=== PATIENT | male | born 1965 | race Caucasian/White ===

== ENCOUNTER 2016-11-17 06:56 | Inpatient (IN) | payer SELFPAY ==
--- NOTE | 2016-11-17 07:40 | EDPHY ---
H & P Time Seen by Provider: 11/17/16 07:32 HPI/ROS: CHIEF COMPLAINT: "My transverse colon to my descending colon has a blockage" HISTORY OF PRESENT ILLNESS: This patient is a 51 year old man, with a history of diverticulitis, presenting with constipation, intermittent over the last two weeks. He last had a bowel movement on Friday (three days ago), encouraged after a suppository. He has had moderate difficulty to have a bowel movement since. It is associated with abdominal distention and left upper abdomen discomfort. The LUQ pain is severe. He has taken X-lax and a small volume enema , with very little alleviation. He passed a small volume of very firm stool. The patient feels like he has not had a complete bowel movement, senses that he has a "blockage at the junction of his transverse colon and descending colon". He denies vomiting or fever. Denies history of bowel obstruction or abdominal surgery. He requests a large enema. REVIEW OF SYSTEMS: Constitutional: No fever, no chills Eyes: No visual changes ENT: No sore throat Respiratory: No cough, no shortness of breath Cardiac: No chest pain Gastrointestinal: No nausea, no vomiting, constipation, left upper quadrant abdominal pain and distention Genitourinary: No hematuria, no dysuria Musculoskeletal: No leg pain or swelling Skin: No rash Neurological: No headache, no numbness, no weakness Psychiatric: No depression Past Medical/Surgical History: Diverticulitis, intermittent problems with constipation. Denies history of bowel obstruction or abdominal surgery. Social History: Non-smoker Smoking Status: Never smoked Physical Exam: General Appearance: Alert, pleasant Eyes: Pupils equal and round, no conjunctival pallor or injection ENT, Mouth: Mucous membranes moist Neck: Normal inspection Respiratory: Lungs are clear to auscultation Cardiovascular: Regular rate and rhythm Gastrointestinal: Abdomen has a firm round mass in the left upper quadrant with moderate tenderness. Neurological: A&O, nonfocal, normal gait Skin: Warm and dry, no rash Extremities: Nontender, no pedal edema Psychiatric: Mood and affect normal Constitutional: Initial Vital Signs Temperature (C) 36.4 C 11/17/16 07:09 Heart Rate 104 H 11/17/16 07:09 Respiratory Rate 22 H 11/17/16 07:09 Blood Pressure 157/96 H 11/17/16 07:09 O2 Sat (%) 95 11/17/16 07:09 O2 Delivery Mode Room Air Allergies/Adverse Reactions: No Known Allergies Allergy (Unverified 11/09/12 08:05) Home Medications: Medication Instructions Recorded NK [No Known Home Meds] 11/17/16 Medical Decision Making - Diagnostics Imaging: Study: CT of the Abdomen Indication: Abdominal pain, hx of diverticulitis Results: The results of the study are: Impression: 1. Descending colon diverticulitis with multiple small abscesses and inflammation along the left lateral paracolic gutter, and also associated with some inflammation of the adjacent left oblique musculature and subcutaneous adipose. A tiny dot of free air is seen under the left hemidiaphragm. There is also evidence of mild rectosigmoid colitis. 2. Interval increase in the size of the left adrenal gland enhancing nodule compared to 2013. Please see the below algorithm for follow-up*. CT or MR reevaluation in 3 months may also be of benefit. 3. Hepatomegaly with diffuse steatosis. The study was read by the radiologist, Dr. Snyder. I viewed the images myself on the PACS system. ED Course/Re-evaluation: The patient insists that he has a fecal impaction. He requests enema, declines further workup prior to the enema. Insists that "this is not my diverticulitis" . Large soap-suds enema administered, requested by the patient. WBC is elevated at 18,000. 0930: Re-evaluation: He is holding in the soap suds enema. No bowel movement yet. I discussed abdomen CT if he does not have a bowel movement soon. Abdominal CT ordered and demonstrated diverticulitis complicated by perforation and abscess. Hospitalist and surgeon paged. Levaquin and Flagyl IV given. Morphine and Zofran IV given for pain control. 1120: I consulted with Dr. Akila Milner, surgery. She will consult on the patient. 1122: I consulted with the hospitalist service. Dr. Brown accepts admission. Differential Diagnosis: Differential diagnosis includes though it is not limited to appendicitis, cholecystitis, diverticulitis, pyelonephritis, bowel perforation, small bowel obstruction. - Data Points Laboratory Results: Laboratory Results 11/17/16 08:54 11/17/16 08:54 Medications Given: Discontinued Medications Sodium Chloride (Ns) 1,000 mls @ 0 mls/hr IV ONCE ONE PRN Reason: Wide Open Stop: 11/17/16 09:28 Last Admin: 11/17/16 09:30 Dose: 1,000 mls Levofloxacin/Dextrose (Levaquin 750 Mg (Premix)) 150 mls @ 100 mls/hr IV EDNOW ONE PRN Reason: Protocol Stop: 11/17/16 12:45 Last Admin: 11/17/16 12:30 Dose: 150 mls Metronidazole/Sodium Chloride (Flagyl 500 Mg (Premix)) 100 mls @ 100 mls/hr IV EDNOW ONE PRN Reason: Protocol Stop: 11/17/16 12:16 Last Admin: 11/17/16 11:25 Dose: 100 mls Morphine Sulfate (Morphine) 6 mg IVP Q1H PRN PRN Reason: Pain, Severe Unable to Take PO Stop: 11/17/16 13:27 Last Admin: 11/17/16 11:55 Dose: 6 mg Ondansetron HCl (Zofran) 4 mg IVP EDNOW ONE Stop: 11/17/16 11:27 Last Admin: 11/17/16 11:55 Dose: 4 mg Departure - Departure Disposition: [facility] Inpatient Acute Clinical Impression: Diverticulitis Qualifiers: Diverticulitis site: large intestine Diverticulitis bleeding: without bleeding Diverticulitis complication: with perforation and abscess Qualifier Code: ( K57.20) Diverticulitis of large intestine with perforation and abscess without bleeding Condition: Fair Report Scribed for: Stephanie Childs Report Scribed by: Laurence Oseguera Date of Report: 11/17/16 Time of Report: 07:40 Physician Review and Approval Statement: 11/17/16 07:41 Portions of this note were transcribed by a biomedical engineering supervisor. I personally performed a history, physical exam, medical decision making, and confirmed accuracy of information the transcribed note.
[2016-11-17 09:06] LABS: % IMMATURE GRANULYOCYTES 0.7 % (0.0-1.1); ABSOLUTE IMMATURE GRANULOCYTES 0.13 10^3/uL (0.00-0.10); ADD DIFF? NO; ADD MORPH? NO; ADD SCAN? NO; ATYPICAL LYMPHOCYTE FLAG 0 (0-99); FRAGMENT RBC FLAG 0 (0-99); HEMATOCRIT 46.1 % (40.0-51.0); HEMOGLOBIN 15.8 g/dL (13.7-17.5); LEFT SHIFT FLG 10 (0-99); LIPEMIA HEMOLYSIS FLAG 90 (0-99); MEAN CELL HEMOGLOBIN 28.5 pg (27.9-34.1); MEAN CELL HEMOGLOBIN CONCENTR. 34.3 g/dL (32.4-36.7); MEAN CELL VOLUME 83.1 fL (81.5-99.8); MEAN PLATELET VOLUME 9.6 fL (8.7-11.7); PLATELET CLUMPS FLAG 10 (0-99); PLATELET COUNT 373 10^3/uL (150-400); RED BLOOD CELL COUNT 5.55 10^6/uL (4.40-6.38); RED CELL DISTRIBUTION WIDTH 13.9 % (11.5-15.2)
[2016-11-17 09:19] LABS: ANION GAP 13 mEq/L (8-16); CALCIUM 9.9 mg/dL (8.5-10.4); CARBON DIOXIDE 23 mEq/l (22-31); CHLORIDE 108 mEq/L (97-110); CREATININE 1.2 mg/dL (0.7-1.3); GLOMERULAR FILTRATION RATE > 60; GLUCOSE 127 mg/dL (70-100); POTASSIUM 4.5 mEq/L (3.5-5.2); SODIUM 144 mEq/L (134-144)
[2016-11-17] MEDS ORDERED: NS 1,000 ML IV ONE (09:27)
[2016-11-17] MEDS ORDERED: IOPAMIDOL (ISOVUE-300) 100 ML BTL IV ONE (09:45)
--- NOTE | 2016-11-17 10:58 | CT ---
"Contrast Enhanced CT Scan of the Abdomen and Pelvis Clinical History: 51-year-old male presenting to the ED complaining of constipation for 2 weeks and severe left upper quadrant pain the last 2 days, with a prior history of diverticulitis. The patient has no prior abdominal surgery history. Technique: Neither oral nor retrograde rectal contrast was administered. Following the uncomplicated intravenous administration of 99 mL of Isovue-300, a multidetector helical CT scan was obtained from the lung bases inferiorly through the proximal femora, with images reformatted at 5.00 and 1.25 mm in crements, and reviewed at a variety of window and level settings. Parasagittal and paracoronal recons tructed images are reviewed on the workstation. The DFOV is 46.4 cm. Dose reduction techniques were u tilized. Comparison Study: Contrast-enhanced CT scan of the abdomen and pelvis, dated November 01, 2012. Findings: Contrast-Enhanced CT Scan of the Abdomen: There is some minimal inferolateral lingular subsegmental a telectasis versus scar. There is no pleural or pericardial effusion. The liver is notable for some gl obal diminished attenuation, consistent with steatosis, and is also enlarged, measuring 19.8 cm along the right hepatic lobe cephalocaudal diameter. There is a 3 mm stable left hepatic lobe cyst on seri es 3 image 12. The spleen, gallbladder, bile ducts, pancreas, right adrenal gland, and the kidneys ar e normal in appearance. There has been a mild marginal interval increase in the size of a smoothly-co ntoured rounded nodule associated with the left adrenal gland, currently measuring 1.8 x 1.9 x 1.8 cm , and previously measuring 1.1 x 1.2 x 1.2 cm in 2013*. The aorta tapers normally, and the IVC is nor mal in caliber. There is no ascites or free air. The CT appearance of small bowel is unremarkable. Th ere is an abnormal appearance to the descending colon within the setting of numerous diverticula, wit h intraluminal fluid, wall thickening, and inflammation of the adjacent mesenteric fat. There has bee n development of some abscesses along the left lateral paracolic gutter (please reference series 3, i mages 32 through 52). The largest abscess cavity measures 3.8 x 6.6 x 5.1 cm. There is also some mild inflammatory thickening along the peripheral lateral left oblique muscle and subcutaneous adipose. M oderate centripetal obesity is present. A tiny dot of free air is seen near the left hemidiaphragm on series 4, image 28. Contrast-Enhanced CT Scan of the Pelvis: In addition to the aforementioned descending colon diverticu litis, there are a few scattered sigmoid colon diverticula with some wall thickening and enhancement extending to the rectosigmoid junction. There is no free air or free fluid in the pelvis. The urinary bladder is moderately distended. The prostate gland and the seminal vesicles are normal. The bladder has a normal contour. There is normal enhancement of the vasculature. The subcutaneous tissues are n ormal in appearance. Skeletal System: Normal. Impression: 1. Descending colon diverticulitis with multiple small abscesses and inflammation along the left late ral paracolic gutter, and also associated with some inflammation of the adjacent left oblique muscula ture and subcutaneous adipose. A tiny dot of free air is seen under the left hemidiaphragm. There is also evidence of mild rectosigmoid colitis. 2. Interval increase in the size of the left adrenal gland enhancing nodule compared to 2013. Please see the below algorithm for follow-up*. CT or MR reevaluation in 3 months may also be of benefit. 3. Hepatomegaly with diffuse steatosis. *Consider obtaining a 24 hour urinary free cortisol or a dexamethasone suppression test, 24 hour urin dina metanephrines and catecholamines, and if hypertensive, plasma aldosterone and plasma renin levels . Results were discussed with Dr. Angie Childs. A Follow-Up Required test result has been communicated via the [facility] | Critical Result syst em on 11/17/2016 10:54, Message ID [id number]."
[2016-11-17] MEDS ORDERED: ONDANSETRON 4 MG/2 ML VIAL IVP ONE (11:26)
[2016-11-17 12:00] LABS: APTT 27.4 SEC (23.0-38.0); INR 1.05 (0.83-1.16); PROTIME(PATIENT) 13.6 SEC (12.0-15.0)
--- NOTE | 2016-11-17 12:17 | GCON ---
[f rep st] CONSULTATION GENERAL SURGERY CONSULTATION DATE OF CONSULTATION: 11/17/2016 REFERRING PHYSICIAN: Stephanie Childs MD HISTORY OF PRESENT ILLNESS: The patient is a 51-year-old man with a history of diverticulitis requir ing hospitalization roughly 4 years ago, who presented to the Emergency Department complaining of lef t lower quadrant pain associated with abdominal distention, nausea, and low-grade fevers. He was fou nd on presentation to the Emergency Department to have a white blood cell count of 19. CT scan demon strated descending diverticulitis with left lateral pericolic gutter abscesses, the largest measuring almost 7 cm in greatest diameter. ASSESSMENT AND PLAN: Descending and sigmoid diverticulitis complicated by pericolic gutter abscesses . He will be admitted to the Hospitalist Service for its broad spectrum antibiotic therapy. I would recommend percutaneous drainage of the largest abscess cavity within the pericolic gutter near the a bdominal wall. I discussed both nonoperative and operative management of diverticulitis with the pat ieroseann and recommended nonoperative therapy for now with percutaneous drainage of his largest abscess a nd antibiotic therapy. If he fails to respond to nonoperative management, he may require emergent or urgent colonic resection which often in the acute setting requires colostomy placement. I also josiah mmended that even if he does respond to nonoperative management at this time, that he eventually foll ow up with Gastroenterology for colonoscopy, and subsequently with Surgery for possible elective and minimally invasive resection of the diverticular segment, as he has had 2 attacks and this one is com plicated by microperforation and abscess. /[id number]/MODL
[2016-11-17] MEDS ORDERED: ZOLPIDEM TARTRATE 5 MG TAB PO PRN (13:44)
[2016-11-17] MEDS: NS 1,000 ML IV SCH (14:19)
--- NOTE | 2016-11-17 14:38 | GHP ---
[f rep st] HISTORY AND PHYSICAL DATE OF ADMISSION: 11/17/2016 CHIEF COMPLAINT: Abdominal pain, fevers. HISTORY OF PRESENT ILLNESS: The patient is a 51-year-old man with a history significant for previous hospitalization for diverticulitis. During that time, he had a small area of perforation. He defer vesced, and the symptoms resolved on Levaquin and Flagyl. Since then, he has had occasional episodes of left lower quadrant discomfort. Typically when that happens, he decreases his oral intake, takes probiotics, and the symptoms resolve. He had similar symptoms 2 weeks ago after eating some pizza. He got a little better after 2 days, but never quite back to normal. Then on Friday, 4 days prio r to this admission, he started having worsening abdominal pain and bloating. , his distenti on got quite a bit worse with swelling in the left lower quadrant, and he developed low-grade fevers. He was hoping the symptoms would resolve, but they persisted. He initially thought this was second dina to constipation, and his last bowel movement was Friday. So on Friday, he started taking Ex -Lax and suppositories. Had a large bowel movement. However, he continued to have a lot of pain and bloating, so he came into the emergency department today for further evaluation and treatment. Vinicius es any headache. No vision, hearing, or speech problems. No chest pain, coughing, or shortness of b reath. No nausea or vomiting. No urinary symptoms. No lower extremity swelling. No significant omi int pains or rashes. REVIEW OF SYSTEMS: A 10-point review of systems was done and is negative except as stated in the HPI . PAST MEDICAL HISTORY: Previous diverticulitis 4 years ago. Scattered papules on his skin which have been present for years, slightly improved from previous. FAMILY HISTORY: Father from some sort of cancer in his abdomen. Mother also passed of what he thinks was cancer. She had a bloated belly at the time of her . 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 He is here with his fiance. He denies a ny tobacco or alcohol use. CURRENT MEDICATIONS: None. ALLERGIES: No known drug allergies. PHYSICAL EXAMINATION: VITAL SIGNS: Afebrile. Heart rate 101, blood pressure 145/79, respirations 1 8. He is 97% on room air. GENERAL: He is a 51-year-old man who is quite uncomfortable with abdomin al pain. He is oriented and alert. HEENT: Pupils are equal. Extraocular movements intact. Mucous membranes are slightly dry. Oropharynx is clear. NECK: Supple, without adenopathy. HEART: Tachy cardic and regular, with a systolic murmur. LUNGS: Clear bilaterally, without wheeze or rhonchi. A BDOMEN: Distended. He does have some tenderness with a slight mass in his left lower quadrant. EXT REMITIES: No clubbing, cyanosis, or edema. : Within normal limits. MUSCULOSKELETAL: No joint d eformities or effusions noted. SKIN: He has some scattered dry papules on his upper arm and hand th at look like neurofibromas. NEUROLOGIC: He is intact. LABORATORY DATA: CBC shows a white count of 18.74, with a left shift. Hemoglobin 15.8, with a plate let count of 373. Electrolytes are normal. BUN 26, with a creatinine of 1.2. Glucose is 127. DIAGNOSTICS: Abdominal CT scan shows descending colon diverticulitis with multiple small abscesses a nd inflammation along the left lateral pericolic gutter. Largest abscess 3 x 4 x 5 cm. Interval inc rease in the size of the left adrenal gland. Enhancing nodule. Algorithm for followup of CT or MR r e-evaluation in 3 months. ASSESSMENT AND PLAN: A previously healthy 51-year-old with a history of diverticulitis who presents with abdominal pain. Found to have complicated diverticulitis with multiple abscesses, the largest o f which is amenable to IR drain placement. 1. Complicated diverticulitis with abscess formation and microperforations. Appreciate general surg nadia consult. The plan will be to admit him to the hospital for IV antibiotics. We will ask Interven tional Radiology to review the CAT scan for possible drain placement in the largest abscess. Hopeful ly, he will improve clinically enough with these nonsurgical measures to avoid surgery. If he does n ot improve, then he will need surgery. Regardless, post hospitalization, he is at high risk for recu rrent diverticulitis and abscess formation since this is his second episode of complicated diverticul itis and would refer him to a surgeon. 2. Scattered skin nodules, likely benign. Follow up with Dermatology as an outpatient. 3. Adrenal nodule noted on routine CT scan. Recommend CT or MR re-evaluation in 3 months. 4. Hepatic steatosis. Recommend the patient establish care with a primary care physician versus [facility] to have this followed up as an outpatient. 5. DVT prophylaxis. We will start low molecular weight heparin in the morning. He may be undergoin g a procedure this afternoon. 6. Given the complicated diverticulitis, the patient will need greater than a 2-midnight stay for co mplete treatment. CODE STATUS: Patient full code. /[id number]/MODL
[2016-11-17] MEDS: ERTAPENEM 1 GM in NS 100 ML IV SCH (16:25)
--- NOTE | 2016-11-17 16:51 | POSTOPPROG ---
Post Op Note Date of Operation: 11/17/16 Surgeon: Claudio Maldonado Anesthesia: Local (Specify) Pre-op Diagnosis: Diverticulitis with abscess Post-op Diagnosis: same Indication: abscess Procedure: CT-guided abscess drainage Findings: 25 ml pus drained Inf/Abcess present in the surg proc area at time of surgery?: Yes Depth: Organ Space EBL: Minimal Complications: 0 Drains: Other (8F multisidehole pigtail drain (Skater))
[2016-11-17 18:33] LABS: COLOR YELLOW; LEUKOCYTE ESTERASE,URINE NEGATIVE (NEGATIVE); NITRITE,URINE NEGATIVE (NEGATIVE)
[2016-11-17 18:40] LABS: MUCUS 1+ /lpf (NONE-1+)
--- NOTE | 2016-11-17 18:50 | CT ---
CT-Guided Percutaneous Abscess Drain History: Diverticulitis with abscess. Consent: Risks and benefits of the procedure were discussed in detail. Informed consent was obtained . Patient accepted risks of internal bleeding, sepsis, and damage to nontarget organ. Medication: Local anesthetic, only. Technique: Radiopaque adhesive localizing grid was placed over the left side of the abdomen and CT im ages were obtained using dose reduction technology. Skin site was selected and labeled. The grid was removed and the skin was prepped and draped in a sterile fashion. 1% Xylocaine was used for local ane sthetic. After a skin jerome with a scalpel, an 8-Tanzanian multiside-hole SKATER pigtail drainage tube wa s passed into the abscess in trocar fashion. CT images were obtained. The retention string was locked . Purple spacer was placed. 25 mL of mathews-green pus were evacuated with half of that sent to the labor atory for microbiology. The abscess was irrigated with 10 mL of sterile saline. The catheter was secu red to the skin with a sterile adhesive dressing. A three-way stopcock, connecting tube, and small nichole ction bulb reservoir were attached. The patient tolerated the procedure well and was returned to his room in stable condition. Findings: The drainage tube is well centered within the abdominal abscess along the left lateral abdo reynaldo cavity. Impression: CT-guided drainage of left abdominal abscess. - - - - - - - - - - - - - - - - - - - - - - - - - - - - - (PQRS measures: Current medications were listed in the medical record, including all known prescripti ons, [id number] medications, herbal medications, and nutritional supplements. Tobacco use: None . Prophylactic antibiotic:Unnecessary. VTE prophylaxis:Unnecessary.) IR Call
[2016-11-17] MEDS: ONDANSETRON 4 MG/2 ML VIAL IVP PRN (20:20)
[2016-11-18] MEDS: NS 1,000 ML IV SCH ×2 (01:04→07:22)
[2016-11-18] MEDS: ONDANSETRON 4 MG/2 ML VIAL IVP PRN ×3 (01:06→21:21)
[2016-11-18] MEDS: ONDANSETRON DISINTEGRATING 4 MG TAB PO PRN (02:53)
[2016-11-18 05:52] LABS: % IMMATURE GRANULYOCYTES 0.6 % (0.0-1.1); ABSOLUTE IMMATURE GRANULOCYTES 0.08 10^3/uL (0.00-0.10); ADD DIFF? NO; ADD MORPH? NO; ADD SCAN? NO; ATYPICAL LYMPHOCYTE FLAG 0 (0-99); FRAGMENT RBC FLAG 0 (0-99); HEMOGLOBIN 12.9 g/dL (13.7-17.5); LEFT SHIFT FLG 0 (0-99); LIPEMIA HEMOLYSIS FLAG 90 (0-99); MEAN CELL HEMOGLOBIN 28.5 pg (27.9-34.1); MEAN CELL HEMOGLOBIN CONCENTR. 33.9 g/dL (32.4-36.7); MEAN CELL VOLUME 84.1 fL (81.5-99.8); MEAN PLATELET VOLUME 9.4 fL (8.7-11.7); PLATELET CLUMPS FLAG 0 (0-99); PLATELET COUNT 314 10^3/uL (150-400); RED BLOOD CELL COUNT 4.52 10^6/uL (4.40-6.38)
[2016-11-18 06:27] LABS: ALANINE AMINOTRANSFERASE 31 IU/L (21-72); ALBUMIN 2.4 g/dL (3.5-5.0); ANION GAP 9 mEq/L (8-16); ASPARTATE AMINOTRANSFERASE 17 IU/L (17-59); BILIRUBIN,TOTAL 0.5 mg/dL (0.1-1.4); CALCIUM 8.7 mg/dL (8.5-10.4); CARBON DIOXIDE 23 mEq/l (22-31); CHLORIDE 111 mEq/L (97-110); CREATININE 1.1 mg/dL (0.7-1.3); GLOMERULAR FILTRATION RATE > 60; GLUCOSE 110 mg/dL (70-100); POTASSIUM 4.3 mEq/L (3.5-5.2); SODIUM 143 mEq/L (134-144); TOTAL PROTEIN 5.4 g/dL (6.3-8.2)
[2016-11-18] MEDS: ERTAPENEM 1 GM in NS 100 ML IV SCH (08:01)
[2016-11-18] MEDS: ENOXAPARIN 40 MG/0.4 ML SYR SC SCH (08:01)
--- NOTE | 2016-11-18 08:55 | HOSPPROG ---
Hospitalist Progress Note Assessment/Plan: 51-year-old relatively healthy man with a previous history of diverticulitis presents with abdominal pain. Found to have acute diverticulitis complicated by abscess and perforation. He underwent percutaneous drainage of the largest abscess yesterday with good result by Dr. Maldonado. He continues to have a drain in place, cultures are pending. # diverticulitis complicated by abscess formation and micro perforation. He has multiple abscesses noted on CT scan the largest of which was drained. * Continue antibiotics and await culture results * Discussed with ID who will see him in consultation regarding length of therapy and follow-up. * Gently advance diet when patient is ready. Continue sips and chips for now. # DVT prophylaxis, Lovenox Subjective: Feeling much better today pain is about a 5 or 6/10. No chest pain coughing shortness of breath no diarrhea or rash Objective: Vital Signs Temp Pulse Resp BP Pulse Ox 36.6 C 74 16 122/84 H 92 11/18/16 07:38 11/18/16 07:38 11/18/16 07:38 11/18/16 07:38 11/18/16 07:38 Microbiology 11/17/16 15:50 Gram Stain - Final Abdomen - Aspirate Laboratory Results 11/18/16 05:20 11/18/16 05:20 11/17/16 11/18/16 11/19/16 05:59 05:59 05:59 Intake Total 1125 1942 Output Total 350 Balance 775 1942 PT 13.6 SEC (12.0-15.0) 11/17/16 08:45 INR 1.05 (0.83-1.16) 11/17/16 08:45 - Physical Exam Constitutional: uncomfortable Eyes: PERRL, anicteric sclera, EOMI Ears, Nose, Mouth, Throat: moist mucous membranes, No oral thrush Cardiovascular: regular rate and rhythym, no murmur, rub, or gallop Respiratory: no respiratory distress, no rales or rhonchi, clear to auscultation , reduced air movement (Basis) Gastrointestinal: guarding (Left lower quadrant), distension (Mild), No normoactive bowel sounds (Diminished) Genitourinary: no bladder fullness Skin: normal color Musculoskeletal: full muscle strength, No muscular tenderness, No abnormal gait Neurologic: AAOx3 Psychiatric: interacting appropriately, not anxious, not encephalopathic ICD10 Worksheet Patient Problems: Problems Problem Status Diagnosed Diverticulitis Acute
--- NOTE | 2016-11-18 19:47 | SOAPPROG ---
SOAP Progress Note Assessment/Plan: Assessment: s/p percutaneous drainage of left paracolic gutter abscess acute sigmoid diverticulitis clinically improving Plan: continue pigtail drain, IV antibiotics 11/18/16 19:45 Subjective: pain improved Objective: Vital Signs Temp Pulse Resp BP Pulse Ox 36.8 C 70 18 122/74 H 92 11/18/16 16:00 11/18/16 16:00 11/18/16 16:00 11/18/16 16:00 11/18/16 16:00 Microbiology 11/17/16 15:50 Gram Stain - Final Abdomen - Aspirate Laboratory Results 11/18/16 05:20 11/18/16 05:20 11/17/16 11/18/16 11/19/16 05:59 05:59 05:59 Intake Total 1125 3814 Output Total 350 45 Balance 775 3769 PT 13.6 SEC (12.0-15.0) 11/17/16 08:45 INR 1.05 (0.83-1.16) 11/17/16 08:45 Physical Exam - Physical Exam General Appearance: alert Abdomen: non-tender, soft, other (45 ml purulent fluid from drain) ICD10 Worksheet Patient Problems: Problems Problem Status Diagnosed Diverticulitis Acute
[2016-11-18 20:52] LABS: ALKALINE PHOSPHATASE 87 IU/L (38-126)
--- NOTE | 2016-11-19 02:50 | GCON ---
[f rep st] CONSULTATION INFECTIOUS DISEASES CONSULTATION. DATE OF CONSULTATION: 11/18/2016 REFERRING PHYSICIAN: Denise Edwards MD REASON FOR CONSULTATION: Diverticular abscess. HISTORY OF PRESENT ILLNESS: The patient is a 51-year-old male with a past medical history of prior d iverticulitis, who I am asked to see in consultation for recurrent diverticulitis with associated div erticular abscess. The patient describes having abdominal pain develop over the last 10-14 days. He notes this began after eating a pizza and was most prominent in the epigastric region but then later became more prominent in his left lower quadrant. He also had concomitant abdominal distention with bloating. He did not note any fevers or chills but did have night sweats. He used some over-the-co unter therapies for constipation hoping this would relieve his symptoms but after having a bowel move ment, he still had worsening pain and bloating. He ultimately came into the emergency department at which point in time, a CT scan of the abdomen and pelvis was performed which revealed multiple divert icular abscesses; the largest abscess measured 3.8 x 6.6 x 5.1 cm along the left lateral pericolic gu tter; he underwent percutaneous drainage of this abscess collection yesterday and his Gram stain is p olymicrobial including gram-positive cocci, gram-negative rods, and gram-positive beaded rods. He vides s been treated empirically with ertapenem and feels significantly improved post drainage. He continu es to have some purulent appearing material in his SVETA drain but notes this is clearing over time. He has been seen in consultation by surgery and understands he likely will need surgical management onc e his acute episode of diverticulitis has been adequately treated. Given the above findings, I am no w asked to assist in his ongoing management. PAST MEDICAL HISTORY: Recurrent diverticulitis as above, a prior traumatic injury as a child. PAST SURGICAL HISTORY: Unremarkable. CURRENT MEDICATIONS: Ertapenem 1 g IV daily, Lovenox 40 mg subcutaneous daily, morphine as needed fo r pain, Oxy IR as needed for pain. ALLERGIES: No known drug allergies. SOCIAL HISTORY: Patient does not smoke. He rarely drinks alcohol. No drug use history. FAMILY HISTORY: Not well known; patient notes that his mother had a distended abdomen when she and concern for cancer was present. REVIEW OF SYSTEMS: Outside that noted in HPI, remainder of 10 system review is unremarkable other th an patient notes that his urine appeared soapy after having a soapsuds enema. He does not note any a ir passage when urinating. Patient did have recent dental work and had been taking some amoxicillin after having an implant placed. PHYSICAL EXAMINATION: VITAL SIGNS: Temperature 37, heart rate 73, respiratory rate 16, blood pressu re 125/79, oxygen saturation 93% on room air. GENERAL: Patient is well nourished, well developed, n o acute distress. He appears nontoxic. HEENT: There is no scleral icterus, conjunctival injection, or conjunctival petechiae. Oropharynx is clear without lesions. Mucous membranes are moist. NECK: Supple without palpable lymphadenopathy. There is no palpable thyromegaly. CHEST: Clear to auscu ltation bilaterally without adventitious sounds. Respiratory effort normal. CARDIOVASCULAR: Regula r rate and rhythm with a 2/6 systolic murmur heard at the left upper and right upper sternal borders. There are no gallops or rubs noted. ABDOMEN: Soft, mildly tender in the epigastrium and left lowe r quadrant; SVETA drain is in place with seropurulent output. Bowel sounds are present. There are no p eritoneal signs. MUSCULOSKELETAL: There is no cyanosis, clubbing, or edema. SKIN: No stigmata of endocarditis. Skin is warm, dry to touch. LYMPHATICS: No cervical or supraclavicular nodes palpabl e. NEUROLOGIC: The patient is alert, interacts appropriately with the examiner. Cranial nerves 2-1 2 grossly intact. Sensation is grossly intact. LABORATORY DATA: White blood cell count 14.2, hematocrit 38.0, platelets 314, neutrophils 79%. Seru m creatinine is 1.1, AST 17, ALT 31, alkaline phosphatase 199, bilirubin 0.5, albumin 2.4. Urinalysi s showed 1-3 red blood cells and 1-3 white blood cells. Gram stain of the diverticular abscess as ou tlined in history of present illness with cultures currently showing 2 gram-negative rods. CT scan o f the abdomen pelvis as outlined above which was reviewed and interpreted by me today. IMPRESSION: Recurrent diverticulitis complicated by diverticular abscess and contained perforation: Gram stain is polymicrobial with gram-positive cocci, raising issue of Enterococcus or microaerophil ic streptococci; beaded gram-positive rods also raises consideration of Actinomyces. The patient is clinically improved post percutaneous drainage. Patient does describe passing soapy material in his urine after having a soapsuds enema; will consider having dye injected into his drain prior to remova l to ensure there is no evidence of colovesicular fistula. RECOMMENDATIONS: 1. Zosyn 4.5 g IV q.8 hours, pending additional culture data in event Actinomyces or Enterococcus ar e present. 2. Discontinue ertapenem. 3. Follow output over SVETA drain over time. 4. Discussed with patient that he will ultimately require surgical therapy in the future once the ac gee episode of diverticulitis and abscess have been treated. Thank you for this consultation. We will continue to follow patient with you. /[id number]/MODL
[2016-11-19] MEDS: ONDANSETRON 4 MG/2 ML VIAL IVP PRN ×3 (04:06→20:40)
[2016-11-19] MEDS: NS 1,000 ML IV SCH ×3 (04:10→19:46)
[2016-11-19 06:16] LABS: % IMMATURE GRANULYOCYTES 0.7 % (0.0-1.1); ABSOLUTE IMMATURE GRANULOCYTES 0.09 10^3/uL (0.00-0.10); ADD DIFF? NO; ADD MORPH? NO; ADD SCAN? NO; ATYPICAL LYMPHOCYTE FLAG 20 (0-99); FRAGMENT RBC FLAG 0 (0-99); HEMOGLOBIN 12.7 g/dL (13.7-17.5); LEFT SHIFT FLG 0 (0-99); LIPEMIA HEMOLYSIS FLAG 80 (0-99); MEAN CELL HEMOGLOBIN 28.3 pg (27.9-34.1); MEAN CELL HEMOGLOBIN CONCENTR. 33.4 g/dL (32.4-36.7); MEAN CELL VOLUME 84.8 fL (81.5-99.8); MEAN PLATELET VOLUME 9.4 fL (8.7-11.7); PLATELET CLUMPS FLAG 10 (0-99); PLATELET COUNT 327 10^3/uL (150-400); RED BLOOD CELL COUNT 4.48 10^6/uL (4.40-6.38); RED CELL DISTRIBUTION WIDTH 14.2 % (11.5-15.2)
[2016-11-19 06:22] LABS: ANION GAP 8 mEq/L (8-16); CALCIUM 8.7 mg/dL (8.5-10.4); CARBON DIOXIDE 21 mEq/l (22-31); CHLORIDE 112 mEq/L (97-110); GLOMERULAR FILTRATION RATE > 60; GLUCOSE 104 mg/dL (70-100); POTASSIUM 4.3 mEq/L (3.5-5.2); SODIUM 141 mEq/L (134-144)
[2016-11-19] MEDS: ERTAPENEM 1 GM in NS 100 ML IV SCH (08:37)
[2016-11-19] MEDS: ENOXAPARIN 40 MG/0.4 ML SYR SC SCH (08:38)
--- NOTE | 2016-11-19 08:58 | SOAPPROG ---
SOAP Progress Note Assessment/Plan: Assessment: s/p percutaneous drainage of left paracolic gutter abscess acute sigmoid diverticulitis clinically improving Plan: continue pigtail drain, IV antibiotics continue clear liquids for now 11/19/16 08:56 Objective: Vital Signs Temp Pulse Resp BP Pulse Ox 37.1 C 76 20 133/73 H 95 11/19/16 08:00 11/19/16 08:00 11/19/16 08:00 11/19/16 08:00 11/19/16 08:00 Microbiology 11/17/16 15:50 Gram Stain - Final Abdomen - Aspirate Laboratory Results 11/19/16 05:20 11/19/16 05:20 11/18/16 11/19/16 11/20/16 05:59 05:59 05:59 Intake Total 1125 3814 1814 Output Total 350 45 25 Balance 775 3769 1789 PT 13.6 SEC (12.0-15.0) 11/17/16 08:45 INR 1.05 (0.83-1.16) 11/17/16 08:45 Physical Exam - Physical Exam General Appearance: alert Abdomen: non-tender, soft, other (fluid from pigtail now more serous), No distended ICD10 Worksheet Patient Problems: Problems Problem Status Diagnosed Diverticulitis Acute
--- NOTE | 2016-11-19 11:36 | PCMIDPN ---
Assessment/Plan: Assessment/Plan: 1. Sigmoid Diverticulitis with abscess: - s/p Ct guided drainage on 11/17/16 - CX: GS: with GPC, GNR, GP beaded rods-----Cx: mixed intestinal murtaza. I spoke with Mariaa in micro. she will have them evaluate further for Actinomyces or evidence of enterococcus. - Zosyn for now until additional info from cultures. -Pt updated on cx results, antibiotics, and plan of care. -wbc overall improving. Meds zosyn 3.375gm q6- 11/19/16 s/p invanz Subjective: Afebrile. c/o abd pain at present. tolerating liquid diet at present. Denies sob , cough, rash. had small liquid stools earlier today. Objective: Vital Signs Temp Pulse Resp BP Pulse Ox 37.1 C 76 20 133/73 H 95 11/19/16 08:00 11/19/16 08:00 11/19/16 08:00 11/19/16 08:00 11/19/16 08:00 Microbiology 11/17/16 15:50 Gram Stain - Final Abdomen - Aspirate Laboratory Results 11/19/16 05:20 11/19/16 05:20 11/18/16 11/19/16 11/20/16 05:59 05:59 05:59 Intake Total 1125 3814 1814 Output Total 350 45 25 Balance 775 3769 1789 - Physical Exam General Appearance: alert, no apparent distress Respiratory: lungs clear Cardiac/Chest: regular rate, rhythm Extremities: No swelling Abdomen: normal bowel sounds, distended, tender (left abdomen), other (SVETA drain noted with serous drainage. ) Skin: No erythema ICD10 Worksheet Patient Problems: Problems Problem Status Diagnosed Diverticulitis Acute
[2016-11-19] MEDS ORDERED: PIPERACILLIN/TAZO 3.375 GM/DEX 50 ML IV SCH (12:00)
[2016-11-19] MEDS: PIPERACILLIN SODIUM/TAZOBACTAM 3.375 GM in D5W 50 ML IV SCH ×3 (12:01→23:05)
--- NOTE | 2016-11-19 15:29 | HOSPPROG ---
Hospitalist Progress Note Assessment/Plan: 51-year-old relatively healthy man with a previous history of diverticulitis presents with abdominal pain. Found to have acute diverticulitis complicated by large abscess and perforation. He underwent percutaneous drainage of the largest abscess yesterday with good result by Dr. Maldonado. He continues to have a drain in place, cultures are pending. # diverticulitis complicated by abscess formation and micro perforation. He has multiple abscesses noted on CT scan the largest of which was drained. * Continue Zosyn until culture results available * Patient clinically improving although still has a lot of pain in the area of his abscess. * Defer to surgery whether he will need reimaging to follow up abscess. # DVT prophylaxis, Lovenox Subjective: Still having quite a bit of pain using IV morphine. Able to tolerate clear liquids Objective: Vital Signs Temp Pulse Resp BP Pulse Ox 36.6 C 74 16 146/79 H 93 11/19/16 15:18 11/19/16 15:18 11/19/16 15:18 11/19/16 15:18 11/19/16 15:18 Microbiology 11/17/16 15:50 Gram Stain - Final Abdomen - Aspirate Laboratory Results 11/19/16 05:20 11/19/16 05:20 11/18/16 11/19/16 11/20/16 05:59 05:59 05:59 Intake Total 1125 3814 1814 Output Total 350 45 25 Balance 775 3769 1789 PT 13.6 SEC (12.0-15.0) 11/17/16 08:45 INR 1.05 (0.83-1.16) 11/17/16 08:45 - Physical Exam Constitutional: uncomfortable Eyes: PERRL Ears, Nose, Mouth, Throat: moist mucous membranes Cardiovascular: regular rate and rhythym, no murmur, rub, or gallop Respiratory: no respiratory distress, no rales or rhonchi Gastrointestinal: normoactive bowel sounds, tenderness, No no palpable masses ( mass llq) Genitourinary: no bladder fullness Skin: warm, normal color Neurologic: AAOx3, No facial droop Psychiatric: interacting appropriately, not anxious, not encephalopathic ICD10 Worksheet Patient Problems: Problems Problem Status Diagnosed Diverticulitis Acute
[2016-11-20] MEDS: ONDANSETRON 4 MG/2 ML VIAL IVP PRN ×3 (01:50→15:15)
[2016-11-20] MEDS: NS 1,000 ML IV SCH ×3 (03:50→23:15)
[2016-11-20] MEDS: PIPERACILLIN SODIUM/TAZOBACTAM 3.375 GM in D5W 50 ML IV SCH ×3 (06:41→18:03)
[2016-11-20] MEDS: ENOXAPARIN 40 MG/0.4 ML SYR SC SCH (09:32)
--- NOTE | 2016-11-20 10:45 | SOAPPROG ---
SOAP Progress Note Assessment/Plan: Assessment: s/p percutaneous drainage of left paracolic gutter abscess acute sigmoid diverticulitis clinically improving Plan: dontinue IV antibiotic therapy he has no desire to advance diet yet, continue clear liquids 11/20/16 10:44 Subjective: tolerating small amounts of clears ambulating Objective: Vital Signs Temp Pulse Resp BP Pulse Ox 36.8 C 69 16 154/84 H 94 11/20/16 07:11 11/20/16 07:11 11/20/16 07:11 11/20/16 07:11 11/20/16 07:11 Microbiology 11/17/16 15:50 Gram Stain - Final Abdomen - Aspirate Laboratory Results 11/19/16 05:20 11/19/16 05:20 11/19/16 11/20/16 11/21/16 05:59 05:59 05:59 Intake Total 3814 4602 424 Output Total 45 35 Balance 3769 4567 424 PT 13.6 SEC (12.0-15.0) 11/17/16 08:45 INR 1.05 (0.83-1.16) 11/17/16 08:45 Physical Exam - Physical Exam General Appearance: alert Abdomen: non-tender, soft, No distended ICD10 Worksheet Patient Problems: Problems Problem Status Diagnosed Diverticulitis Acute
--- NOTE | 2016-11-20 11:30 | HOSPPROG ---
Hospitalist Progress Note Assessment/Plan: 51-year-old relatively healthy man with a previous history of diverticulitis presents with abdominal pain. Found to have acute diverticulitis complicated by large abscess and perforation. He underwent percutaneous drainage of the largest abscess with good result by Dr. Maldonado. He continues to have a drain in place, cultures are pending. # diverticulitis complicated by abscess formation and micro perforation. He has multiple abscesses noted on CT scan the largest of which was drained. * Continue Zosyn per Infectious * Patient clinically improving although still has a lot of pain in the area of his abscess. * Defer to surgery whether he will need reimaging to follow up abscess. # DVT prophylaxis, Lovenox Subjective: had a lot of pain last night but feels like he is getting better today Objective: Vital Signs Temp Pulse Resp BP Pulse Ox 36.8 C 69 16 154/84 H 94 11/20/16 07:11 11/20/16 07:11 11/20/16 07:11 11/20/16 07:11 11/20/16 07:11 Microbiology 11/17/16 15:50 Gram Stain - Final Abdomen - Aspirate Laboratory Results 11/19/16 05:20 11/19/16 05:20 11/19/16 11/20/16 11/21/16 05:59 05:59 05:59 Intake Total 3814 4602 424 Output Total 45 35 Balance 3769 4567 424 PT 13.6 SEC (12.0-15.0) 11/17/16 08:45 INR 1.05 (0.83-1.16) 11/17/16 08:45 - Physical Exam Constitutional: no apparent distress, appears nourished, not in pain Eyes: anicteric sclera, EOMI Ears, Nose, Mouth, Throat: moist mucous membranes, hearing normal Cardiovascular: regular rate and rhythym Respiratory: no respiratory distress Gastrointestinal: normoactive bowel sounds, soft, non-tender abdomen, no palpable masses, other ( SVETA drain in place left lower quadrant) Skin: warm Neurologic: AAOx3 Psychiatric: interacting appropriately, not anxious, not encephalopathic, thought process linear ICD10 Worksheet Patient Problems: Problems Problem Status Diagnosed Diverticulitis Acute
--- NOTE | 2016-11-20 14:19 | PCMIDPN ---
Assessment/Plan: Assessment: Sigmoid diverticulitis with abscess. Polymicrobial culture. No evidence from micro for Actinomyces nor Enterococcus in the culture. Continue Zosyn. Leukocytosis continues to improve. Plan: 1. Continue Zosyn monotherapy. 2. Follow lab data and clinical course. Subjective: Patient is feeling better today. Feels like his condition is at a turning point. No fevers or chills. Objective: Zosyn # 2 Vital Signs Temp Pulse Resp BP Pulse Ox 36.8 C 69 16 154/84 H 94 11/20/16 07:11 11/20/16 07:11 11/20/16 07:11 11/20/16 07:11 11/20/16 07:11 Microbiology 11/17/16 15:50 Gram Stain - Final Abdomen - Aspirate Laboratory Results 11/19/16 05:20 11/19/16 05:20 11/19/16 11/20/16 11/21/16 05:59 05:59 05:59 Intake Total 3814 4602 424 Output Total 45 35 Balance 3769 4567 424 - Physical Exam General Appearance: WD/WN, alert, no apparent distress, non-toxic Respiratory: lungs clear, normal breath sounds, No respiratory distress Cardiac/Chest: regular rate, rhythm, No tachycardia Abdomen: soft, other (Drain in place.), No non-tender, No distended Skin: normal color, warm/dry, No rash Neuro/Psych: alert, normal mood/affect, oriented x 3 ICD10 Worksheet Patient Problems: Problems Problem Status Diagnosed Diverticulitis Acute
[2016-11-20] MEDS: oxyCODONE IR 5 MG TAB PO PRN ×3 (18:03→23:15)
[2016-11-20] MEDS: ACETAMINOPHEN 325 MG TAB PO PRN ×2 (18:03→21:17)
[2016-11-20] MEDS: ONDANSETRON DISINTEGRATING 4 MG TAB PO PRN (21:17)
[2016-11-21] MEDS: PIPERACILLIN SODIUM/TAZOBACTAM 3.375 GM in D5W 50 ML IV SCH ×4 (00:36→18:34)
[2016-11-21] MEDS: ACETAMINOPHEN 325 MG TAB PO PRN ×5 (02:33→22:14)
[2016-11-21] MEDS: oxyCODONE IR 5 MG TAB PO PRN ×6 (02:34→22:13)
[2016-11-21 05:48] LABS: % IMMATURE GRANULYOCYTES 1.1 % (0.0-1.1); ABSOLUTE IMMATURE GRANULOCYTES 0.11 10^3/uL (0.00-0.10); ADD DIFF? NO; ADD MORPH? NO; ADD SCAN? NO; ATYPICAL LYMPHOCYTE FLAG 30 (0-99); FRAGMENT RBC FLAG 0 (0-99); HEMATOCRIT 40.5 % (40.0-51.0); HEMOGLOBIN 13.7 g/dL (13.7-17.5); LEFT SHIFT FLG 10 (0-99); LIPEMIA HEMOLYSIS FLAG 90 (0-99); MEAN CELL HEMOGLOBIN 28.7 pg (27.9-34.1); MEAN CELL HEMOGLOBIN CONCENTR. 33.8 g/dL (32.4-36.7); MEAN CELL VOLUME 84.7 fL (81.5-99.8); MEAN PLATELET VOLUME 9.2 fL (8.7-11.7); PLATELET CLUMPS FLAG 0 (0-99); PLATELET COUNT 374 10^3/uL (150-400); RED BLOOD CELL COUNT 4.78 10^6/uL (4.40-6.38)
[2016-11-21 06:02] LABS: ANION GAP 8 mEq/L (8-16); CALCIUM 8.9 mg/dL (8.5-10.4); CARBON DIOXIDE 27 mEq/l (22-31); CHLORIDE 108 mEq/L (97-110); CREATININE 1.3 mg/dL (0.7-1.3); GLOMERULAR FILTRATION RATE 58; GLUCOSE 93 mg/dL (70-100); POTASSIUM 4.2 mEq/L (3.5-5.2); SODIUM 143 mEq/L (134-144)
[2016-11-21] MEDS: ENOXAPARIN 40 MG/0.4 ML SYR SC SCH (08:54)
--- NOTE | 2016-11-21 10:38 | SOAPPROG ---
SOAP Progress Note Assessment/Plan: Assessment: s/p percutaneous drainage of left paracolic gutter abscess acute sigmoid diverticulitis clinically improving Plan: continue IV antibiotic therapy advance to regular diet 11/21/16 10:37 Subjective: tolerating clears had BM Objective: Vital Signs Temp Pulse Resp BP Pulse Ox 37.1 C 59 L 16 147/84 H 95 11/21/16 08:00 11/21/16 08:00 11/21/16 08:00 11/21/16 08:00 11/21/16 08:00 Microbiology 11/17/16 15:50 Gram Stain - Final Abdomen - Aspirate Laboratory Results 11/21/16 04:58 11/21/16 04:58 11/20/16 11/21/16 11/22/16 05:59 05:59 05:59 Intake Total 4602 2562 100 Output Total 35 30 Balance 4567 2532 100 PT 13.6 SEC (12.0-15.0) 11/17/16 08:45 INR 1.05 (0.83-1.16) 11/17/16 08:45 Physical Exam - Physical Exam General Appearance: alert Abdomen: non-tender, soft, No distended ICD10 Worksheet Patient Problems: Problems Problem Status Diagnosed Diverticulitis Acute
--- NOTE | 2016-11-21 11:50 | HOSPPROG ---
Hospitalist Progress Note Assessment/Plan: 51-year-old relatively healthy man with a previous history of diverticulitis presents with abdominal pain. Found to have acute diverticulitis complicated by large abscess and perforation. He underwent percutaneous drainage of the largest abscess with good result by Dr. Maldonado. He continues to have a drain in place, cultures are pending. # diverticulitis complicated by abscess formation and micro perforation. He has multiple abscesses noted on CT scan the largest of which was drained. * Continue Zosyn per Infectious * SVETA drain with continued drainage * repeat imaging at some point # DVT prophylaxis, Lovenox Subjective: tolerating diet so far. Feeling better Objective: Vital Signs Temp Pulse Resp BP Pulse Ox 37.1 C 59 L 16 147/84 H 95 11/21/16 08:00 11/21/16 08:00 11/21/16 08:00 11/21/16 08:00 11/21/16 08:00 Microbiology 11/17/16 15:50 Gram Stain - Final Abdomen - Aspirate Laboratory Results 11/21/16 04:58 11/21/16 04:58 11/20/16 11/21/16 11/22/16 05:59 05:59 05:59 Intake Total 4602 2562 100 Output Total 35 30 Balance 4567 2532 100 PT 13.6 SEC (12.0-15.0) 11/17/16 08:45 INR 1.05 (0.83-1.16) 11/17/16 08:45 - Physical Exam Constitutional: no apparent distress, appears nourished, not in pain Eyes: anicteric sclera, EOMI Ears, Nose, Mouth, Throat: moist mucous membranes Cardiovascular: regular rate and rhythym Respiratory: no respiratory distress Gastrointestinal: normoactive bowel sounds, soft, non-tender abdomen, other ( SVETA drain with clearish yellowish drainage) Skin: warm Neurologic: AAOx3 Psychiatric: interacting appropriately, not anxious, not encephalopathic, thought process linear ICD10 Worksheet Patient Problems: Problems Problem Status Diagnosed Diverticulitis Acute
[2016-11-21] MEDS: NS 1,000 ML IV SCH (14:19)
--- NOTE | 2016-11-21 19:33 | PCMIDPN ---
Assessment/Plan: Assessment: Sigmoid diverticulitis with abscess. Polymicrobial culture. No evidence from micro for Actinomyces nor Enterococcus in the culture. Continue Zosyn. Leukocytosis continues to improve. Plan: 1. Continue Zosyn monotherapy. No changes at present. 2. Follow lab data and clinical course. 11/22/16 08:44 Subjective: Patient is sitting comfortable in his chair in his hospital room. He denies any new complaints. States he is clearly getting better. He credits the Zosyn. Objective: Zosyn # 3 Vital Signs Temp Pulse Resp BP Pulse Ox 36.8 C 56 L 18 122/74 H 97 11/21/16 15:40 11/21/16 15:40 11/21/16 15:40 11/21/16 15:40 11/21/16 15:40 Microbiology 11/17/16 15:50 Gram Stain - Final Abdomen - Aspirate Laboratory Results 11/21/16 04:58 11/21/16 04:58 11/20/16 11/21/16 11/22/16 05:59 05:59 05:59 Intake Total 4602 2562 100 Output Total 35 30 Balance 4567 2532 100 - Physical Exam General Appearance: WD/WN, alert, no apparent distress, non-toxic Respiratory: lungs clear, normal breath sounds, No respiratory distress Cardiac/Chest: regular rate, rhythm, No tachycardia Skin: normal color, warm/dry, No rash Neuro/Psych: alert, normal mood/affect, oriented x 3 ICD10 Worksheet Patient Problems: Problems Problem Status Diagnosed Diverticulitis Acute
[2016-11-21 22:55] VITALS: RESP 16
[2016-11-22] MEDS: PIPERACILLIN SODIUM/TAZOBACTAM 3.375 GM in D5W 50 ML IV SCH ×3 (01:11→11:21)
[2016-11-22] MEDS: NS 1,000 ML IV SCH (01:13)
[2016-11-22] MEDS: ACETAMINOPHEN 325 MG TAB PO PRN ×4 (01:17→13:53)
[2016-11-22] MEDS: oxyCODONE IR 5 MG TAB PO PRN ×4 (01:17→13:52)
[2016-11-22 07:46] VITALS: PULSE 67
[2016-11-22] MEDS: ENOXAPARIN 40 MG/0.4 ML SYR SC SCH (08:14)
--- NOTE | 2016-11-22 10:41 | SOAPPROG ---
SOAP Progress Note Assessment/Plan: Assessment: s/p percutaneous drainage of left paracolic gutter abscess acute sigmoid diverticulitis clinically improving Plan: discontinued IVF recommend transition to oral antibiotic therapy discharge home per Hospitalists f/u with Dr. Aiken in 2 weeks pigtail removed 11/22/16 10:41 Subjective: tolerating regular diet Objective: Vital Signs Temp Pulse Resp BP Pulse Ox 37.1 C 67 16 162/93 H 93 11/22/16 07:45 11/22/16 07:45 11/22/16 07:45 11/22/16 07:45 11/22/16 07:45 Microbiology 11/17/16 15:50 Gram Stain - Final Abdomen - Aspirate Laboratory Results 11/21/16 04:58 11/21/16 04:58 11/21/16 11/22/16 11/23/16 05:59 05:59 05:59 Intake Total 2562 1506 441 Output Total 30 Balance 2532 1506 441 PT 13.6 SEC (12.0-15.0) 11/17/16 08:45 INR 1.05 (0.83-1.16) 11/17/16 08:45 Physical Exam - Physical Exam General Appearance: alert Abdomen: non-tender, soft, other (SVETA with serous drainage) ICD10 Worksheet Patient Problems: Problems Problem Status Diagnosed Diverticulitis Acute
[2016-11-22 11:47] VITALS: BP 150/93; TEMP 98; O2SAT 94
--- NOTE | 2016-11-22 15:32 | PCMIDPN ---
Assessment/Plan: Sigmoid Diverticulitis with abscess s/p Ct guided drainage on 11/17/16, abdominal aspirate: GS: with GPC, GNR, GP beaded rods no further workup to date. Patient's abdominal pain is significantly better (09/21 on admission now 2 or 12/20!) WBC almost normal. -- Patient likely needs a repeat imaging will assess at follow-up appointment on 11/27/2016 -- transition to p.o. antibiotics, Augmentin 875 twice daily. Based on appearance of Gram stain this will include coverage of Actinomyces -- warnings given about worsening abdominal pain, fever, worsening diarrhea, rash medication Zosyn 3.375 g IV Q 6, # 4 coordination of care with Juliette Milner and Jesica Gonzales Subjective: patient reports continued loose stool, markedly improved abdominal pain (09/21 on admission now 2 or 12/20) Objective: Vital Signs Temp Pulse Resp BP Pulse Ox 36.6 C 67 16 150/93 H 94 11/22/16 11:46 11/22/16 11:46 11/22/16 11:46 11/22/16 11:46 11/22/16 11:46 Microbiology 11/17/16 15:50 Gram Stain - Final Abdomen - Aspirate Laboratory Results 11/21/16 04:58 11/21/16 04:58 11/21/16 11/22/16 11/23/16 05:59 05:59 05:59 Intake Total 2562 1506 441 Output Total 30 Balance 2532 1506 441 - Physical Exam General Appearance: alert, no apparent distress, obese, non-toxic EENT: No scleral icterus Respiratory: lungs clear Neck: supple Cardiac/Chest: regular rate, rhythm Abdomen: distended, other ( hyperactive bowel sounds, still some significant discomfort to deep palpation of the left lower quadrant without rebound) Skin: No rash Neuro/Psych: alert, normal mood/affect, oriented x 3 - Time Spent With Patient Time Spent with Patient: greater than 25 minutes Time Spent with Patient: Greater than 25 minutes spent on this patients care, greater than 50% of time spent counseling, educating, and coordinating care regarding the above mentioned plan. ICD10 Worksheet Patient Problems: Problems Problem Status Diagnosed Diverticulitis Acute
--- NOTE | 2016-11-22 21:09 | GDS ---
[f rep st] DISCHARGE SUMMARY DISCHARGE DIAGNOSES: 1. Perforated diverticulitis with intraabdominal abscess. 2. Left adrenal gland nodule, very slight more large than in 2013. HISTORY: This is a 51-year-old male presenting with abdominal pain. HOSPITAL COURSE: Patient had a CT scan done which showed descending colon diverticulitis with multip le small abscesses and inflammation. The patient did have IR do a drain and a significant amount of purulent material was aspirated for some time. He was placed on IV antibiotics. Over the next 5 day s, he improved quite significantly. He has remained afebrile. His white blood cell count has improv ed as well. Infectious Disease has been following. Drain was taken out on day of discharge. He lynette l then be switched over to oral antibiotics with close followup with Infectious Disease. At time of discharge, he has been able to ambulate and eat, and is having bowel movements, although they are luan ewhat loose. FOLLOWUP INSTRUCTIONS: He is instructed to follow up with surgery within 1 week. He also has an marjorie ointment with Infectious Disease next week as well. TIME SPENT: Greater than 30 minutes was spent on discharge. /[id number]/MODL
== END 2016-11-22 16:34 | disposition home or self-care (01) | DRG 392 ==
LOC: F3E 12:58
PROVIDERS: ADMIT Internal Medicine; ATTEND Internal Medicine
PROC: 0W9G30Z Drainage of Peritoneal Cavity with Drainage Device, Percutaneous Approach (ICD-10-PCS; principal; 2016-11-17)
DX: K57.20 Diverticulitis of large intestine with perforation and abscess without bleeding (principal); Z80.0 Family history of malignant neoplasm of digestive organs; K76.0 Fatty (change of) liver, not elsewhere classified; D23.9 Other benign neoplasm of skin, unspecified; E27.9 Disorder of adrenal gland, unspecified
CPT/HCPCS: 96365; J1335; J1650; J1956; J2405; J2543; Q9967